=== PATIENT | male | born 1935 | race Caucasian/White ===

== ENCOUNTER 2021-02-09 15:36 | Inpatient (IN) | payer MEDICARE, OTHER ==
[~2021-02-09] VITALS: Ht 180.3 cm; Wt 83.0 kg
[2021-02-09 15:38] VITALS: BP 136/76
[2021-02-09] MEDS ORDERED: ALPHAGAN P5 ML RT. EYE (15:48)
[2021-02-09] MEDS ORDERED: NORVASC5 MG PO (15:48)
[2021-02-09] MEDS ORDERED: ALPRAZOLAM PO (15:48)
[2021-02-09] MEDS ORDERED: AUGMENTIN 875-1 EACH PO (15:48)
[2021-02-09] MEDS ORDERED: ELIQUIS5 MG PO (15:48)
[2021-02-09] MEDS ORDERED: VITAMIN B-121000 MC2 SUBLING (15:49)
[2021-02-09] MEDS ORDERED: CELEXA 20 MG TA20 MG PO (15:49)
[2021-02-09] MEDS ORDERED: CALCIUM + D3 E1 EACH PO (15:49)
[2021-02-09] MEDS ORDERED: BUPROPION XL300 MG PO (15:49)
[2021-02-09] MEDS ORDERED: COSOPT OCUMETER10 M1 RT. EYE (15:50)
[2021-02-09] MEDS ORDERED: PROSCAR 5MG TABL5 M1 PO (15:50)
[2021-02-09] MEDS ORDERED: CULTURELLE1 EACH PO (15:50)
[2021-02-09] MEDS ORDERED: LOPRESSOR50 MG PO (15:51)
[2021-02-09] MEDS ORDERED: LATANOPROST 0.7.5 ML EA. EYE (15:51)
[2021-02-09] MEDS ORDERED: MELATONIN3 M1 PO (15:51)
[2021-02-09] MEDS ORDERED: ATIVAN0.5 M1 PO (15:51)
[2021-02-09] MEDS ORDERED: VITAMIN C500 M2 PO (15:52)
[2021-02-09] MEDS ORDERED: OLANZAPINE5 M1 PO (15:52)
[2021-02-09] MEDS ORDERED: PROTONIX40 M2 PO (15:52)
[2021-02-09 18:31] LABS: ABSOLUTE BASOPHILS 0.1 thou/uL (0.0-0.2); ABSOLUTE EOSINOPHILS 0.3 thou/uL (0.0-0.7); ABSOLUTE LYMPHOCYTES 2.1 thou/uL (0.8-5.3); ABSOLUTE MONOCYTES 0.9 thou/uL (0.0-1.2); ABSOLUTE NEUTROPHILS 5.8 thou/uL (1.6-8.1); NUCLEATED RBCS 0 /100WBC; RBC 4.71 mil/uL (4.50-6.00); WBC 9.2 thou/uL (4.0-11.0)
[2021-02-09 18:33] LABS: BASOPHILS 0.9 %; EOSINOPHILS 3.6 %; HEMATOCRIT 42.5 % (42.0-52.0); HEMOGLOBIN 14.1 gm/dL (14.0-18.0); LYMPHOCYTES 22.7 %; MCHC 33.3 g/dL (28.0-37.0); MCV 90.2 fL (80.0-100.0); MONOCYTES 9.6 %; MPV 7.2 fl. (7.2-11.1); PLATELET COUNT* 285 thou/uL (150-400); POLYS 63.2 %; RDW-CV 15.1 % (10.5-14.5)
[2021-02-09 18:38] LABS: CALCIUM 9.1 mg/dL (8.5-10.1); CREATININE 1.5 mg/dL (0.6-1.3); POTASSIUM 4.2 mmol/L (3.5-5.1)
[2021-02-09 18:48] LABS: ALBUMIN 3.2 g/dL (3.4-5.0); TOTAL BILIRUBIN 0.6 mg/dL (<0.1-1.0); TOTAL PROTEIN 7.9 g/dL (6.4-8.2)
--- NOTE | 2021-02-09 19:14 | EKG ---
[place] [address] ELECTROCARDIOGRAM REPORT Name: ARTUR CHOI Room: [facility]#: [id number] Admission: 02/09/21 Attend Phys: Discharge: Date of : 33 Date of Service: 02/09/211822 Report #: [id number] THIS REPORT FOR: //name// [facility] ED Test Date: 2021-02-09 Test Time: 18:23:58 Pat Name: ARTUR CHOI Department: Room: Gender: Sales Service Representative: : 1935 Requested By: Marisabel Taylor Order Number: [id number] MD: Kip Valdivia Measurements Intervals [place] Rate: 104 P: 27 MO: 167 QRS: -66 QRSD: 142 T: 11 QT: 379 QTc: 499 Interpretive Statements Sinus tachycardia Ventricular premature complex RBBB and LAFB Probable left ventricular hypertrophy Baseline wander in lead(s) V2 No previous ECG available for comparison Electronically Signed On 02-09-2021 19:14:15 [employer] STUD[employer] by Kip Valdivia [email or web address] <ELECTRONICALLY SIGNED> By: Kip Valdivia MD, [facility] 02/09/21 1914 22 22 Kip Valdivia MD, [facility] /EPI
[2021-02-09 21:00] LABS: URINE BILIRUBIN NEGATIVE (Negative); URINE BLOOD 2+ (Negative); URINE CLARITY CLOUDY; URINE COLOR YELLOW; URINE GLUCOSE-RANDOM NEGATIVE (Negative); URINE KETONES NEGATIVE (Negative); URINE LEUKOCYTES-REFLEX 2+ (Negative); URINE NITRITE-REFLEX NEGATIVE (Negative); URINE PROTEIN NEGATIVE (Negative); URINE SPECIFIC GRAVITY 1.025 (1.005-1.030); URINE UROBILINOGEN 0.2 E.U./dl (0.2-1.0)
[2021-02-09 21:06] LABS: MUCUS None Seen strn/LPF (None Seen); SQUAMOUS 0-3 Few /LPF (0-3); URINE WBC-REFLEX >25 Many /HPF (0-5); WBC CLUMPS Few (None Seen)
[2021-02-09 21:07] LABS: CASTS None Seen /LPF (None Seen); CRYSTALS None Seen /LPF (None Seen); URINE RBC 3-10 Few /HPF (0-2); YEAST-REFLEX Present (None Seen)
[2021-02-09 21:08] LABS: BACTERIA-REFLEX None Seen /HPF (None Seen)
[2021-02-10 01:00] VITALS: BP 127/60
[2021-02-10 05:00] VITALS: BP 122/53
[2021-02-10 08:30] VITALS: BP 144/80
[2021-02-10 13:00] VITALS: BP 144/69
[2021-02-10 16:38] VITALS: BP 144/69
[2021-02-10 20:45] VITALS: BP 155/82
[2021-02-11 14:43] LABS: PO2 VENOUS 33.3 mmHg (35.0-45.0)
[2021-02-11 14:45] LABS: HEMATOCRIT 43.3 % (42.0-52.0); NUCLEATED RBCS 0 /100WBC
[2021-02-11 14:47] LABS: HEMOGLOBIN 14.3 gm/dL (14.0-18.0); MCH 29.9 pg (26.0-34.0); MCHC 32.9 g/dL (28.0-37.0); MCV 90.9 fL (80.0-100.0); MPV 6.9 fl. (7.2-11.1); PLATELET COUNT* 298 thou/uL (150-400); RBC 4.76 mil/uL (4.50-6.00); RDW-CV 15.1 % (10.5-14.5); WBC 13.4 thou/uL (4.0-11.0)
[2021-02-11 15:00] LABS: CALCIUM 8.7 mg/dL (8.5-10.1); CREATININE 1.2 mg/dL (0.6-1.3); MAGNESIUM 1.8 mg/dL (1.8-2.4); POTASSIUM 4.4 mmol/L (3.5-5.1); TOTAL BILIRUBIN 0.4 mg/dL (<0.1-1.0); TOTAL PROTEIN 7.7 g/dL (6.4-8.2)
[2021-02-11 15:36] LABS: ABSOLUTE LYMPHOCYTES 0.4 thou/uL (0.8-5.3); ABSOLUTE MONOCYTES 0.5 thou/uL (0.0-1.2); ABSOLUTE NEUTROPHILS 12.5 thou/uL (1.6-8.1); PLATELET ESTIMATE ADEQUATE
[2021-02-11 16:05] VITALS: BP 126/77
[2021-02-11 17:14] LABS: ESR (SEDRATE) 40 mm/hr (0-20)
[2021-02-11 19:47] LABS: URINE BILIRUBIN NEGATIVE (Negative); URINE BLOOD 1+ (Negative); URINE COLOR YELLOW; URINE GLUCOSE-RANDOM NEGATIVE (Negative); URINE KETONES NEGATIVE (Negative); URINE LEUKOCYTES 2+ (Negative); URINE NITRITE NEGATIVE (Negative); URINE PROTEIN TRACE (Negative); URINE SPECIFIC GRAVITY >= 1.030 (1.005-1.030); URINE UROBILINOGEN 0.2 E.U./dl (0.2-1.0)
[2021-02-11 19:55] LABS: URINE CLARITY CLOUDY
[2021-02-11 19:57] LABS: BACTERIA 1-9 Few /HPF (None Seen); CASTS None Seen /LPF (None Seen); CRYSTALS None Seen /LPF (None Seen); SQUAMOUS 4-10 Moderate /LPF (0-3); URINE WBC >25 Many /HPF (0-5)
[2021-02-11 20:00] VITALS: BP 121/70
[2021-02-12 04:54] VITALS: BP 135/63
[2021-02-12 08:00] VITALS: BP 125/50
[2021-02-12] MEDS ORDERED: VITAMIN D325 MC2 PO (13:23)
[2021-02-12] MEDS ORDERED: PREVALITE PACKET4 GM PO (13:23)
[2021-02-12] MEDS ORDERED: IPRAT-ALBUT 0.5-3 ML INH (13:23)
[2021-02-12] MEDS ORDERED: CEFDINIR300 MG PO (13:23)
[2021-02-12 16:00] VITALS: BP 139/59
[2021-02-12 20:48] VITALS: BP 142/66
[2021-02-13 08:00] VITALS: BP 104/43; BP 141/69
[2021-02-13 09:10] VITALS: BP 141/69
== END 2021-02-13 15:45 | DRG 682 ==
LOC: M.ERS 15:36 → M.TBA-ER 21:33 → M.3W 21:33
PROVIDERS: Physician Assistant; ADMIT Internal Medicine; ATTEND Internal Medicine
DX: N17.0 Acute kidney failure with tubular necrosis (principal); R65.11 Systemic inflammatory response syndrome (SIRS) of non-infectious origin with acute organ dysfunction; N30.00 Acute cystitis without hematuria; B96.89 Other specified bacterial agents as the cause of diseases classified elsewhere; F32.9 Major depressive disorder, single episode, unspecified; F41.9 Anxiety disorder, unspecified; I48.91 Unspecified atrial fibrillation; I10 Essential (primary) hypertension; N40.0 Benign prostatic hyperplasia without lower urinary tract symptoms; K21.9 Gastro-esophageal reflux disease without esophagitis; N13.5 Crossing vessel and stricture of ureter without hydronephrosis; N20.0 Calculus of kidney; Z20.822 Contact with and (suspected) exposure to COVID-19; Z90.49 Acquired absence of other specified parts of digestive tract; Z88.8 Allergy status to other drugs, medicaments and biological substances; Z88.1 Allergy status to other antibiotic agents; Z91.041 Radiographic dye allergy status; Z91.013 Allergy to seafood